=== PATIENT | male | born 1950 | race Hispanic/Latino ===

== ENCOUNTER 2019-12-08 16:11 | Emergency (ER) | payer MEDICARE ==
[2019-12-08 16:46] VITALS: BP 152/86
--- NOTE | 2019-12-08 17:02 | Emergency Department Report ---
Upper Extremity - HPI Chief Complaint: Extremity Injury, Upper Stated Complaint: FINGER CUT Time Seen by Provider: 12/08/19 17:02 Upper Extremity: Left Middle Finger (Distal laceration) Occurred When: Today Mechanism: Hit with Object Severity: severe Symptoms: Yes Pain with Movement, Yes Deformity, Yes Laceration or Abrasion, No Limited Range of Movement, No Numbness, No Weakness, No Swelling, No Bruising/Ecchymosis Other History: 69 yr old female presents to ED c/o laceration to middle finger of left hand. Patient states he was at work using his table saw when it "kicked back" and cut the distal aspect of left middle finger. 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 He reports mainly pain and bleeding to distal finger. He reports no numbness or weakness or any other symptoms at this time. ED Review of Systems ROS: Stated complaint: FINGER CUT Other details as noted in HPI Comment: All other systems reviewed and negative Musculoskeletal: arthralgia Neurological: denies: weakness, numbness, paresthesias ED Past Medical Hx - Past Medical History Previous Medical History?: No - Surgical History Past Surgical History?: Yes Additional Surgical History: left hip surgery - Social History Smoking Status: Current Every Day Smoker Substance Use Type: Alcohol - Medications Home Medications: Home Medications Medication Instructions Recorded Confirmed Last Taken Type cephALEXin [Keflex] 500 mg PO Q8HR #21 cap 12/08/19 Unknown Rx Upper Extremity Exam - Exam General: Vital signs noted. No distress. Alert and acting appropriately. Head and Torso: No HEENT Abnormality, No Neck Tenderness, No Chest/Lungs Abnormality, No Abdominal Tenderness, No Back Tenderness Shoulder Exam: No Shoulder Tenderness, No Clavicle Tenderness, No Normal Range of Motion in Shoulder, No Shoulder Deformity, No AC Joint Tenderness Arm Exam: No Arm/Humerus Tenderness, No Arm Deformity Elbow: No Elbow Tenderness, No Normal Range of Motion in Elbow, No Elbow Deformity Forearm: No Forearm Tenderness, No Forearm Deformity, No Pain with Pronation, No Pain with Supination Wrist: No Wrist Tenderness, No Normal ROM in Wrist, No Wrist Deformity, No Snuffbox Tenderness, No Pain with Axial Thumb Compression Hand: Yes Digit Tenderness (There is partial avulsion of the distal aspect of left middle finger with complete avulsion of nail and nail bed. No obvious bone exposure but it can be palpated in wound. The fat pad of finger is still attached. mild bleed from wound. sensation intact. ROM of DIP joint nl. ), Yes Digit(s) Deformity, No Hand Tenderness, No Hand Deformity, No Normal ROM in Digit(s) CMS Exam: Yes Broken Skin, Yes Normal Distal Pulses, Yes Normal Capillary Refill, Yes Normal Distal Sensation ED Course Vital Signs 12/08/19 16:43 Temperature 97.9 F Pulse Rate 94 H Respiratory 20 Rate Blood Pressure 152/86 O2 Sat by Pulse 97 Oximetry - Laceration /Wound Repair Finger Wound Location: upper extremity (Left middle finger) Wound's Depth, Shape: irregular, flap, nail-avulsed, contused tissue Wound Explored: clean Irrigated w/ Saline (ccs): 30 Betadine Prep?: Yes Anesthesia: 0.5% Sensorcaine Volume Anesthetic (ccs): 10 Wound Debrided: minimal Wound Repaired With: sutures Suture Size/Type: 4:0, nylon Number of Sutures: 5 Progress: Digital block to left middle finger using bupivacaine. Patient tolerated procedure well. No complications. - Nerve Block Consent Obtained: verbal consent Local Anesthetic Used: Marcaine 0.5% Amount of anesthesia used: 10 Side: left Nerve Blocks: digital Procedure Successful: Yes Complications: none Patient Tolerated Procedure: well ED Medical Decision Making - Medical Decision Making 1912 -- pt presented c/o left middle finger laceration via table saw. Patient with partial amputation to distal left middle finger with complete avulsion of nail and nail bed. Xray reviewed and shows distal tuft and soft tissue amputation. The remaining soft tissue (the fat pad) was used to make a flap over the distal finger and sutured (see procedure note for details). Reviewed xray with patient. Informed him that he will still need to f/u with hand specialist. He has seen a retail customer service specialist in past for his shoulder, recommend that he call the office to see if they hand specialist. Informed him that it is very important to f/u with hand specialist. He can also f/u with his PCP to get referral to hand specialist if his Ortho doc office does not have hand specialist. Patient expresses understanding of instructions and agrees with plan. He will be prescribed antibiotics. Offered him pain meds but he refused. He is stable at time of d/c. Critical care attestation.: If time is entered above; I have spent that time in minutes in the direct care of this critically ill patient, excluding procedure time. ED Disposition Clinical Impression: Traumatic amputation of finger tip, Nail avulsion, Avulsion of nail bed Disposition: DC-01 TO HOME OR SELFCARE Is pt being admited?: No Does the pt Need Aspirin: No Condition: Stable Instructions: Finger Amputation (ED) Additional Instructions: I recommend close f/u with Hand specialist ( call your orthopedic surgeons office and see if they have hand specialist in office or f/u with PCP for referral to hand specialist. Leave dressing and splint in place until f/u with hand specialist. Take antibiotic as prescribed. Take motrin or tylenol for pain. Return to ED if area is worse or appears to be getting infected (pus drainage, redness, swelling increased pain. Prescriptions: cephALEXin [Keflex] 500 mg PO Q8HR #21 cap Time of Disposition: 19:10
[2019-12-08] MEDS ORDERED: BUPIVACAINE/PF (0.5%) 5 MG/1 ML 10 ML VIAL INFILTRATI ONE (17:09)
[2019-12-08] MEDS ORDERED: ACETAMINOPHEN 325 MG TAB PO ONE (17:10)
[2019-12-08] MEDS ORDERED: cephALEXin 500 MG CAP PO ONE (17:10)
[2019-12-08] MEDS ORDERED: DIPHtheria,PERTUSSIS(ACELL),TETANUS VACCINE/PF 0.5 ML VIAL IM ONE (17:11)
--- NOTE | 2019-12-08 17:45 | XRay Report ---
LEFT THIRD FINGER 3 VIEWS INDICATION / CLINICAL INFORMATION: middle finger tip amputation COMPARISON: None available. FINDINGS: BONES / JOINT(S): There has been amputation of the distal tip of the left third finger. The distal tu ft and some distal soft tissue have been amputated. SOFT TISSUES: No significant abnormality. ADDITIONAL FINDINGS: None. Signer Name: Norberto Chirinos MD Signed: 12/08/2019 5:41 PM Workstation Name: [id number]
== END 2019-12-08 20:11 | disposition home or self-care (01) ==
LOC: ED 16:11
DX: S68.113A Complete traumatic metacarpophalangeal amputation of left middle finger, initial encounter (principal); F17.200 Nicotine dependence, unspecified, uncomplicated; Z79.899 Other long term (current) drug therapy; W26.8XXA Contact with other sharp object(s), not elsewhere classified, initial encounter; Y93.89 Activity, other specified; Y92.89 Other specified places as the place of occurrence of the external cause; Y99.8 Other external cause status
CPT/HCPCS: 90471; 90715; 99283